=== PATIENT | male | born 1940 | race Caucasian/White ===

== ENCOUNTER 2017-03-14 22:56 | Observation (INO) | payer OTHER ==
[~2017-03-14] VITALS: Ht 165.1 cm; Wt 72.6 kg
[~2017-03-14 22:56] MED LIST: ALLOPURINOL300 MG PO; AMARYL1 MG PO; ASPIRIN81 M1 PO; AVAPRO150 MG PO; BACTRIM DS1 TAB PO; CALCITRIOL0.25 MCG PO; COUMADIN6 MG PO; FLOMAX0.4 MG PO; LIPITOR20 MG PO; LIPITOR40 MG PO; LOPRESSOR25 MG PO; METFORMIN HCL500 MG PO; MULTIVITAMIN1 TAB PO; NEURONTIN300 MG PO; NIACIN250 MG PO; OMEPRAZOLE20 M1 PO; VITAMIN D-11000 UNIT PO
--- NOTE | 2017-03-15 00:19 | DIAGNOSTIC IMAGING REPORT ---
PROCEDURE: XR CHEST 1 VIEW INDICATION: WEAKNESS TECHNIQUE: Portable AP view (ACR 3-0 hours). COMPARISON: Compared to chest x-ray on 01/20/2015. FINDINGS: Allowing for suboptimal inspiration, lungs are clear. Heart and mediastinum are normal. Thorax is normal. IMPRESSION: 1. Negative chest.
--- NOTE | 2017-03-15 00:34 | DIAGNOSTIC IMAGING REPORT ---
PROCEDURE: CT HEAD WITHOUT CONTRAST INDICATION: DIZZINESS TECHNIQUE: Noncontrast axial images with sagittal and coronal reformations. COMPARISON: Compared to a head CT on 01/20/2015. FINDINGS: There is a large old left occipital infarct. Findings superimposed on moderate old small vessel disease and atrophic changes. There is no evidence of acute process or hemorrhage. Sinuses and mastoids are normal. IMPRESSION: 1. 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 2. 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 3. No change. No evidence of acute process. 4. Findings discussed with Dr. Bunny Gupta (03/15/2017, 0020 hours) All CT scans at this facility use dose modulation, iterative reconstruction, and/or weight-based dosing when appropriate to reduce radiation dose to as low as reasonably achievable.
--- NOTE | 2017-03-15 04:36 | ED CLINICAL REPORT ---
Clinical Report - Physicians/Mid Levels [facility] [address] [place] [address] 03/14/2017 22:57 Patient: SUZANNE WILEY Time Seen: 23:14. Arrived- By ambulance. Historian- patient and EMS personnel. History limited by dementia. Physical Exam limited by dementia. HISTORY OF PRESENT ILLNESS Chief Complaint: DIZZINESS and WEAKNESS. Not described as a sense of rotation, movement, falling or confusion or feeling off balance. Described as feeling light-headed. When seen in the E.D., it was gone. This started just prior to arrival and is now gone. It was abrupt in onset and has been intermittent. No nausea, vomiting or ear pain. He has had right-sided tinnitus and left-sided tinnitus (chronically). He has had similar symptoms previously. REVIEW OF SYSTEMS No chills, fever, sweats, calf pain or chest pain. No cough, difficulty breathing, pedal edema, abdominal pain or black stools. No bloody stools, constipation, diarrhea, nausea or vomiting. No urinary problems. The patient has had intermittent palpitations (today). All systems otherwise negative, except as recorded above. PAST HISTORY ( PCP - Luci). Problems: Thoracic outlet syndrome. HLD. COPD - Chronic Obstructive Pulmonary Disease. BPH with obstruction. Vitamin D deficiency. Hyperparathyroidism. Dermatophytosis of the body. Atrial Fibrillation. Hyperkalemia. Chronic renal failure syndrome. Aortic Valve regurg. Onychogryphosis. PVD. Urge incontinence of urine. Gross hematuria. Hypersomnia. Contusion. Fall. Clavicle Fracture. Sepsis. Hypomagnesemia. Oral Anticoagulation Therapy. Balanitis. Renal Insufficiency. UTI - Urinary Tract Infection. Dementia. Immunizations. Gastroparesis. Onychomycosis. Gastric ulcer. CVA - Cerebrovascular Accident. Arthritis. Gout. Gangrene of foot. Cellulitis. Hypercholesterolemia. Hypertension. Diabetes Mellitus. Additional Surgeries: Angioplasty of blood vessel. Ankle surgery . Cholecystectomy. Partial amputation left index,middle,ring fingers. Tonsillectomy. Medications: Oxybutynin. Avapro 150 mg PO QD. Flomax 0.4 mg PO QHS. Omeprazole 20 mg PO QD. Vitamin D3 2000 IU 2 PO QD. Enteric Aspirin 81 mg QD. Metoprolol 25 mg PO QD. Lipitor 40 mg tab 1.5 tab PO QHS. Allopurinol 300 mg tab PO QD. Gabapentin 300 mg tab PO QHS. Tylenol Extra Strength Oral. Multivitamins Oral. Nystatin External. Zinc Oxide External. Docusate 100 mg QD. Maalox. Zinc Oxide. Finasteride 5 mg QD. Nystatin. Calmoseptine. Lexapro 10 mg 1/2 tab QD. Ketoconazole External. Allergies: NKDA. SOCIAL HISTORY Smoker- current status unknown. Occasional alcohol use. Is a local resident. He lives with spouse. FAMILY HISTORY Premature onset heart disease in first-degree relative (father and sibling). ADDITIONAL NOTES The nursing notes have been reviewed. PHYSICAL EXAM Vital Signs: 03/14/2017 23:01 BP: 189/55. HR: 68. RR: 18. O2 saturation: 98%. Temp: 98.2 F. Pain level now: 0/10. Have been reviewed. Appearance: Alert. Eyes: Pupils equal, round and reactive to light. No nystagmus. ENT: Pharynx normal. Neck: Normal inspection. Neck supple. No carotid bruit. CVS: Normal heart rate and rhythm. 2/6 systolic murmur. Respiratory: No respiratory distress. Breath sounds normal. Abdomen: Soft and nontender. No organomegaly. Back: Normal inspection. Skin: Skin warm and dry. Normal skin color. Normal skin turgor. Extremities: Extremities exhibit normal ROM. No calf tenderness. No lower extremity edema. Neuro: Alert. No motor deficit. No sensory deficit. LABS, X-RAYS, AND EKG EKG: Rate: 53. Non-specific ST segment / T wave abnormalities. EKG unchanged when compared with prior EKG. (22 January 2015). Chest X-ray: No acute disease. Laboratory Tests: UA-Culture if indicated: (SAY: 03/15/2017 03:45) ( MsgRcvd 03/15/2017 04:12) Final results Test Result Flag Units (Reference) URINE COLOR YELLOW URINE APPEARANCE CLEAR URINE GLUCOSE NEGATIVE (NEGATIVE) URINE BILIRUBIN NEGATIVE (NEGATIVE) URINE KETONE NEGATIVE (NEGATIVE) URINE SPECIFIC GRAVITY 1.025 (1.010-1.030) URINE PH 6.0 (5.0-8.0) URINE PROTEIN 2+ (NEGATIVE) URINE UROBILINOGEN 0.2 EU/dL (0.2-1.0) URINE NITRITE NEGATIVE (NEGATIVE) URINE BLOOD 1+ (NEGATIVE) URINE LEUK ESTERASE POSITIVE (NEGATIVE) URINE RBC 3-5 rbc/hpf (0-1) URINE WBC 25-50 wbc/hpf (0-1) URINE EPITHELIAL CELLS 0-1 EPI/hpf (0-5) URINE BACTERIA MODERATE (2+ TO 3+) (NONE SEEN) URINE COMMENT CULTURE INDICATED YEAST PRESENTURINE CULTURES ARE SET-UP BASED ON THE FOLLOWING CRITERIA:POSITIVE NITRITEPOSITIVE LEUKOCYTE ESTERASEGREATER THAN 10 WHITE BLOOD CELLSMODERATE (2+) OR GREATER BACTERIA PT with INR: (SAY: 03/15/2017 00:01) ( [facility] 03/15/2017 04:54) Final results Test Result Flag Units (Reference) INR 1.0 (0.8-1.2) Low Intensity Therapy: INR 1.5-2.0 PT range 18.5-23.1Mod.Intensity Therapy: INR 2.0-3.0 PT range 23.1-31.5High Intensity Therapy: INR 2.5-3.5 PT range 27.4-35.5High Intensity Therapy 2: INR 3.0-4.0 PT range 31.5-39.3 APTT 34 SECONDS (24-34) Lactate, Serum: (SAY: 03/15/2017 04:35) ( [facility] 03/15/2017 05:05) Final results Test Result Flag Units (Reference) LACTIC ACID 1.1 mmol/L (0.4-2.0) CPK: (SAY: 03/15/2017 03:55) ( [facility] 03/15/2017 04:18) Final results Test Result Flag Units (Reference) CPK 34 U/L (24-260) TROPONIN I 0.12 ng/mL (0.00-1.5) TROPONIN REFERENCE RANGE:<0.1 NEGATIVE0.1-1.5 INDETERMINANT>1.5 POSITIVE BNP: (SAY: 03/15/2017 00:01) ( [facility] 03/15/2017 00:42) Final results Test Result Flag Units (Reference) B-TYPE NATRIURETIC PEPTIDE 168 H pg/ml (5-100) CBC w Diff: (SAY: 03/14/2017 23:00) ( [facility] 03/14/2017 23:27) Final results Test Result Flag Units (Reference) WHITE BLOOD COUNT 4.9 K/uL (4.5-11.5) RED BLOOD COUNT 4.36 L M/uL (4.50-5.90) HEMOGLOBIN 12.5 L gm/dL (13.5-17.5) HEMATOCRIT 39.1 L % (41.0-53.0) MEAN CELL VOLUME 90 fL (80-100) MEAN CORPUSCULAR HGB 29 pg (26-34) MEAN CORPUSCULAR HGB CONC 32 g/dL (31-37) RED CELL DISTRIBUTION WIDTH 16.6 H % (11.6-14.8) PLATELET COUNT 81 L K/uL (150-400) LYMPH % 29.6 % (25-40) MONO % 5.0 % (3-14) GRANULOCYTE % 65.4 CMP: (SAY: 03/14/2017 23:00) ( [facility] 03/14/2017 23:42) Final results Test Result Flag Units (Reference) GLUCOSE 162 H mg/dL (70-110) BUN 25 H mg/dL (7-18) CREATININE 1.0 mg/dL (0.6-1.3) Estimated GFR >60 mL/min Estimated GFR- >60 mL/min Note: Persistent reduction over 3 months in eGFR<60 mL/min/1.73 m2 defines CKD. Patients with eGFR values>=60 mL/min/1.73 m2 may also have CKD if evidence ofpersistent proteinuria. Additional information may be foundat www.kidney.org. SODIUM 146 H mmol/L (136-145) POTASSIUM 4.4 mmol/L (3.5-5.1) CHLORIDE 112 H mmol/L (98-107) CARBON DIOXIDE 29 mmol/L (21-32) CALCIUM 7.7 L mg/dL (8.5-10.1) TOTAL PROTEIN 5.8 L g/dL (6.4-8.2) ALBUMIN 2.3 L g/dL (3.3-5.0) BILIRUBIN, TOTAL 0.4 mg/dL (0.0-1.0) ALKALINE PHOSPHATASE 157 H U/L (46-116) AST (SGOT) 30 U/L (15-37) ALT (SGPT) 46 U/L (12-78) LIPASE 83 U/L (73-393) AMYLASE 52 U/L (25-115) CPK 26 U/L (24-260) TROPONIN I 0.15 ng/mL (0.00-1.5) TROPONIN REFERENCE RANGE:<0.1 NEGATIVE0.1-1.5 INDETERMINANT>1.5 POSITIVE . PROGRESS AND PROCEDURES Course of Care: Patient is stable. Discussed case with hospitalist, (Brandi - he saw the patient in the ER). Reviewed test results and need for additional work-up. Agreed upon treatment plan, need for patient follow-up and decision to admit. Patient/family counseled. Old medical records reviewed. CLINICAL IMPRESSION Dizziness. Changed mental status. Urinary tract infection. Abnormal tests: (indeterminate troponin). INSTRUCTIONS Prescription Medications: Penicillin V 500mg: take 1 tab orally every 6 hours for 10 days. Dispense forty (40). No refill (Electronically signed by Bunny Gupta MD 03/15/2017 9:46)
--- NOTE | 2017-03-15 04:36 | ED CLINICAL REPORT ---
Clinical Report - Physicians/Mid Levels [facility] [address] [place] [address] 03/14/2017 22:57 Patient: SUZANNE WILEY Time Seen: 23:14. Arrived- By ambulance. Historian- patient and EMS personnel. History limited by dementia. Physical Exam limited by dementia. HISTORY OF PRESENT ILLNESS Chief Complaint: DIZZINESS and WEAKNESS. Not described as a sense of rotation, movement, falling or confusion or feeling off balance. Described as feeling light-headed. When seen in the E.D., it was gone. This started just prior to arrival and is now gone. It was abrupt in onset and has been intermittent. No nausea, vomiting or ear pain. He has had right-sided tinnitus and left-sided tinnitus (chronically). He has had similar symptoms previously. REVIEW OF SYSTEMS No chills, fever, sweats, calf pain or chest pain. No cough, difficulty breathing, pedal edema, abdominal pain or black stools. No bloody stools, constipation, diarrhea, nausea or vomiting. No urinary problems. The patient has had intermittent palpitations (today). All systems otherwise negative, except as recorded above. PAST HISTORY ( PCP - Luci). Problems: Thoracic outlet syndrome. HLD. COPD - Chronic Obstructive Pulmonary Disease. BPH with obstruction. Vitamin D deficiency. Hyperparathyroidism. Dermatophytosis of the body. Atrial Fibrillation. Hyperkalemia. Chronic renal failure syndrome. Aortic Valve regurg. Onychogryphosis. PVD. Urge incontinence of urine. Gross hematuria. Hypersomnia. Contusion. Fall. Clavicle Fracture. Sepsis. Hypomagnesemia. Oral Anticoagulation Therapy. Balanitis. Renal Insufficiency. UTI - Urinary Tract Infection. Dementia. Immunizations. Gastroparesis. Onychomycosis. Gastric ulcer. CVA - Cerebrovascular Accident. Arthritis. Gout. Gangrene of foot. Cellulitis. Hypercholesterolemia. Hypertension. Diabetes Mellitus. Additional Surgeries: Angioplasty of blood vessel. Ankle surgery . Cholecystectomy. Partial amputation left index,middle,ring fingers. Tonsillectomy. Medications: Oxybutynin. Avapro 150 mg PO QD. Flomax 0.4 mg PO QHS. Omeprazole 20 mg PO QD. Vitamin D3 2000 IU 2 PO QD. Enteric Aspirin 81 mg QD. Metoprolol 25 mg PO QD. Lipitor 40 mg tab 1.5 tab PO QHS. Allopurinol 300 mg tab PO QD. Gabapentin 300 mg tab PO QHS. Tylenol Extra Strength Oral. Multivitamins Oral. Nystatin External. Zinc Oxide External. Docusate 100 mg QD. Maalox. Zinc Oxide. Finasteride 5 mg QD. Nystatin. Calmoseptine. Lexapro 10 mg 1/2 tab QD. Ketoconazole External. Allergies: NKDA. SOCIAL HISTORY Smoker- current status unknown. Occasional alcohol use. Is a local resident. He lives with spouse. FAMILY HISTORY Premature onset heart disease in first-degree relative (father and sibling). ADDITIONAL NOTES The nursing notes have been reviewed. PHYSICAL EXAM Vital Signs: 03/14/2017 23:01 BP: 189/55. HR: 68. RR: 18. O2 saturation: 98%. Temp: 98.2 F. Pain level now: 0/10. Have been reviewed. Appearance: Alert. Eyes: Pupils equal, round and reactive to light. No nystagmus. ENT: Pharynx normal. Neck: Normal inspection. Neck supple. No carotid bruit. CVS: Normal heart rate and rhythm. 2/6 systolic murmur. Respiratory: No respiratory distress. Breath sounds normal. Abdomen: Soft and nontender. No organomegaly. Back: Normal inspection. Skin: Skin warm and dry. Normal skin color. Normal skin turgor. Extremities: Extremities exhibit normal ROM. No calf tenderness. No lower extremity edema. Neuro: Alert. No motor deficit. No sensory deficit. LABS, X-RAYS, AND EKG EKG: Rate: 53. Non-specific ST segment / T wave abnormalities. EKG unchanged when compared with prior EKG. (22 January 2015). Chest X-ray: No acute disease. Laboratory Tests: UA-Culture if indicated: (SAY: 03/15/2017 03:45) ( MsgRcvd 03/15/2017 04:12) Final results Test Result Flag Units (Reference) URINE COLOR YELLOW URINE APPEARANCE CLEAR URINE GLUCOSE NEGATIVE (NEGATIVE) URINE BILIRUBIN NEGATIVE (NEGATIVE) URINE KETONE NEGATIVE (NEGATIVE) URINE SPECIFIC GRAVITY 1.025 (1.010-1.030) URINE PH 6.0 (5.0-8.0) URINE PROTEIN 2+ (NEGATIVE) URINE UROBILINOGEN 0.2 EU/dL (0.2-1.0) URINE NITRITE NEGATIVE (NEGATIVE) URINE BLOOD 1+ (NEGATIVE) URINE LEUK ESTERASE POSITIVE (NEGATIVE) URINE RBC 3-5 rbc/hpf (0-1) URINE WBC 25-50 wbc/hpf (0-1) URINE EPITHELIAL CELLS 0-1 EPI/hpf (0-5) URINE BACTERIA MODERATE (2+ TO 3+) (NONE SEEN) URINE COMMENT CULTURE INDICATED YEAST PRESENTURINE CULTURES ARE SET-UP BASED ON THE FOLLOWING CRITERIA:POSITIVE NITRITEPOSITIVE LEUKOCYTE ESTERASEGREATER THAN 10 WHITE BLOOD CELLSMODERATE (2+) OR GREATER BACTERIA PT with INR: (SAY: 03/15/2017 00:01) ( [facility] 03/15/2017 04:54) Final results Test Result Flag Units (Reference) INR 1.0 (0.8-1.2) Low Intensity Therapy: INR 1.5-2.0 PT range 18.5-23.1Mod.Intensity Therapy: INR 2.0-3.0 PT range 23.1-31.5High Intensity Therapy: INR 2.5-3.5 PT range 27.4-35.5High Intensity Therapy 2: INR 3.0-4.0 PT range 31.5-39.3 APTT 34 SECONDS (24-34) Lactate, Serum: (SAY: 03/15/2017 04:35) ( [facility] 03/15/2017 05:05) Final results Test Result Flag Units (Reference) LACTIC ACID 1.1 mmol/L (0.4-2.0) CPK: (SAY: 03/15/2017 03:55) ( [facility] 03/15/2017 04:18) Final results Test Result Flag Units (Reference) CPK 34 U/L (24-260) TROPONIN I 0.12 ng/mL (0.00-1.5) TROPONIN REFERENCE RANGE:<0.1 NEGATIVE0.1-1.5 INDETERMINANT>1.5 POSITIVE BNP: (SAY: 03/15/2017 00:01) ( [facility] 03/15/2017 00:42) Final results Test Result Flag Units (Reference) B-TYPE NATRIURETIC PEPTIDE 168 H pg/ml (5-100) CBC w Diff: (SAY: 03/14/2017 23:00) ( [facility] 03/14/2017 23:27) Final results Test Result Flag Units (Reference) WHITE BLOOD COUNT 4.9 K/uL (4.5-11.5) RED BLOOD COUNT 4.36 L M/uL (4.50-5.90) HEMOGLOBIN 12.5 L gm/dL (13.5-17.5) HEMATOCRIT 39.1 L % (41.0-53.0) MEAN CELL VOLUME 90 fL (80-100) MEAN CORPUSCULAR HGB 29 pg (26-34) MEAN CORPUSCULAR HGB CONC 32 g/dL (31-37) RED CELL DISTRIBUTION WIDTH 16.6 H % (11.6-14.8) PLATELET COUNT 81 L K/uL (150-400) LYMPH % 29.6 % (25-40) MONO % 5.0 % (3-14) GRANULOCYTE % 65.4 CMP: (SAY: 03/14/2017 23:00) ( [facility] 03/14/2017 23:42) Final results Test Result Flag Units (Reference) GLUCOSE 162 H mg/dL (70-110) BUN 25 H mg/dL (7-18) CREATININE 1.0 mg/dL (0.6-1.3) Estimated GFR >60 mL/min Estimated GFR- >60 mL/min Note: Persistent reduction over 3 months in eGFR<60 mL/min/1.73 m2 defines CKD. Patients with eGFR values>=60 mL/min/1.73 m2 may also have CKD if evidence ofpersistent proteinuria. Additional information may be foundat www.kidney.org. SODIUM 146 H mmol/L (136-145) POTASSIUM 4.4 mmol/L (3.5-5.1) CHLORIDE 112 H mmol/L (98-107) CARBON DIOXIDE 29 mmol/L (21-32) CALCIUM 7.7 L mg/dL (8.5-10.1) TOTAL PROTEIN 5.8 L g/dL (6.4-8.2) ALBUMIN 2.3 L g/dL (3.3-5.0) BILIRUBIN, TOTAL 0.4 mg/dL (0.0-1.0) ALKALINE PHOSPHATASE 157 H U/L (46-116) AST (SGOT) 30 U/L (15-37) ALT (SGPT) 46 U/L (12-78) LIPASE 83 U/L (73-393) AMYLASE 52 U/L (25-115) CPK 26 U/L (24-260) TROPONIN I 0.15 ng/mL (0.00-1.5) TROPONIN REFERENCE RANGE:<0.1 NEGATIVE0.1-1.5 INDETERMINANT>1.5 POSITIVE . PROGRESS AND PROCEDURES Course of Care: Patient is stable. Discussed case with hospitalist, (Brandi - he saw the patient in the ER). Reviewed test results and need for additional work-up. Agreed upon treatment plan, need for patient follow-up and decision to admit. Patient/family counseled. Old medical records reviewed. CLINICAL IMPRESSION Dizziness. Changed mental status. Urinary tract infection. Abnormal tests: (indeterminate troponin). INSTRUCTIONS Prescription Medications: Penicillin V 500mg: take 1 tab orally every 6 hours for 10 days. Dispense forty (40). No refill (Electronically signed by Bunny Gupta MD 03/15/2017 9:46)
--- NOTE | 2017-03-15 04:37 | ED ORDER SUMMARY ---
..... Patient: SUZANNE WILEY OrderSheet [facility] VisitID: [id number] [place] [address] 76y, M Registration Date/Time: 03/14/2017 ORDER SHEET Weight: 73.4 kg (stated) Allergies: NKDA GENERAL ORDERS: Chest 1V Urgent (23:03/14/2017 Cheng ORONA) (Ack 23:20 LMuller) (23:31 Lindsay) Ship Washer (Continuous) (:03/14/2017 Cheng ORONA) (Ack 23:32 MCook R.N.) (0:01 MCook R.N.) CT Head wo Cont Urgent (:03/14/2017 Cheng ORONA) (Ack 23:20 LMuller) (23:31 Lindsay) CBC w Diff Urgent (:03/14/2017 Cheng ORONA) (Ack 23:20 LMuller) (23:26 JQuivey R.N.) CMP Urgent (:03/14/2017 Cheng ORONA) (Ack 23:20 LMuller) (23:26 JQuivey R.N.) UA-Culture if indicated Urgent (:03/14/2017 Cheng ORONA) (Ack 23:20 LMuller) (4:30 JQuivey R.N.) Amylase Urgent (:03/14/2017 Cheng ORONA) (Ack 23:20 LMuller) (23:26 JQuivey R.N.) Lipase Urgent (:03/14/2017 Cheng ORONA) (Ack 23:20 LMuller) (23:26 JQuivey R.N.) CPK Urgent (23:03/14/2017 Cheng ORONA) (Ack 23:20 LMuller) (23:26 JQuivey R.N.) Troponin-I Urgent (:03/14/2017 Cheng ORONA) (Ack 23:20 LMuller) (23:26 JQuivey R.N.) Pulse oximeter (:03/14/2017 Cheng ORONA) (23:28 MCook R.N.) EKG - ER Stat (23:15 03/14/2017 Cheng ORONA) (Ack 23:20 LMuller) (23:28 LMuller) Vitals - Orthostatic (23:03/14/2017 Cheng ORONA) (Ack 23:32 MCook R.N.) (0:01 MCook R.N.) BNP Urgent (00:23 03/15/2017 Cheng ORONA) (0:28 MCook R.N.) (0:28 LMuller) Troponin-I (2nd set) Urgent (03:42 03/15/2017 Cheng ORONA) (Ack 4:00 RKaruga) (4:48 JQuivey R.N.) CPK (2nd set) Urgent (03:42 03/15/2017 Cheng ORONA) (Ack 4:00 RKbeltranuga) (4:48 JQuivey R.N.) Blood Culture (No) (N/A) Urgent (04:17 03/15/2017 Cheng ORONA) (Ack 4:28 RKbeltranuga) (4:48 JQuivey R.N.) Lactate, Serum Urgent (04:18 03/15/2017 Cheng ORONA) (Ack 4:28 RKbeltranuga) (4:48 JQuivey R.N.) PT with INR Urgent (04:29 03/15/2017 Cheng ORONA) (Ack 4:32 Mary) (4:48 JQuivey R.N.) PTT Urgent (04:03/15/2017 Cheng ORONA) (Ack 4:32 Mary) (4:48 JQuivey R.N.) MEDICATION ORDERS: Aspirin PO 325 mg (NOW) (00:21 03/15/2017 Cheng ORONA) (0:54 MCook R.N.) Clonidine PO 0.2 mg (NOW) (00:57 03/15/2017 Cheng ORONA) (1:01 MCook R.N.) IV FLUIDS: IV Saline Lock (23:15 03/14/2017 Cheng ORONA) (23:26 JQuivey R.N.) Ativan IV 0.5 mg (HIGH ALERT MEDICATION, NOW) (02:58 03/15/2017 Cheng ORONA) (3:07 Lorenza R.N.) Levaquin IV 750 mg/150 mL (NOW) (04:20 03/15/2017 Cheng ORONA) (Ack 4:31 JQuivey R.N.) (4:49 JQuivey R.N.) ORDER SHEET NOTES: [Electronically signed by Sotero Atkinson R.N. (06:34 03/15/2017)] [Electronically signed by Bunny Gupta MD (09:46 03/15/2017)] [Electronically locked/signed by Sotero Atkinson R.N. (06:34 03/15/2017)]
--- NOTE | 2017-03-15 04:37 | ED ORDER SUMMARY ---
..... Patient: SUZANNE WILEY OrderSheet [facility] VisitID: [id number] [address] [place] [address] 76y, M Registration Date/Time: 03/14/2017 ORDER SHEET Weight: 73.4 kg (stated) Allergies: NKDA GENERAL ORDERS: Chest 1V Urgent (23:03/14/2017 Cheng ORONA) (Ack 23:20 LMuller) (23:31 Lindsay) Gravity Prospecting Observer Helper (Continuous) (:03/14/2017 Cheng ORONA) (Ack 23:32 MCook R.N.) (0:01 MCook R.N.) CT Head wo Cont Urgent (:03/14/2017 Cheng ORONA) (Ack 23:20 LMuller) (23:31 Lindsay) CBC w Diff Urgent (:03/14/2017 Cheng ORONA) (Ack 23:20 LMuller) (23:26 JQuivey R.N.) CMP Urgent (:03/14/2017 Cheng ORONA) (Ack 23:20 LMuller) (23:26 JQuivey R.N.) UA-Culture if indicated Urgent (:03/14/2017 Cheng ORONA) (Ack 23:20 LMuller) (4:30 JQuivey R.N.) Amylase Urgent (:03/14/2017 Cheng ORONA) (Ack 23:20 LMuller) (23:26 JQuivey R.N.) Lipase Urgent (:03/14/2017 Cheng ORONA) (Ack 23:20 LMuller) (23:26 JQuivey R.N.) CPK Urgent (23:03/14/2017 Cheng ORONA) (Ack 23:20 LMuller) (23:26 JQuivey R.N.) Troponin-I Urgent (:03/14/2017 Cheng ORONA) (Ack 23:20 LMuller) (23:26 JQuivey R.N.) Pulse oximeter (:03/14/2017 Cheng ORONA) (23:28 MCook R.N.) EKG - ER Stat (23:15 03/14/2017 Cheng ORONA) (Ack 23:20 LMuller) (23:28 LMuller) Vitals - Orthostatic (23:03/14/2017 Cheng ORONA) (Ack 23:32 MCook R.N.) (0:01 MCook R.N.) BNP Urgent (00:23 03/15/2017 Cheng ORONA) (0:28 MCook R.N.) (0:28 LMuller) Troponin-I (2nd set) Urgent (03:42 03/15/2017 Cheng ORONA) (Ack 4:00 RKaruga) (4:48 JQuivey R.N.) CPK (2nd set) Urgent (03:42 03/15/2017 Cheng ORONA) (Ack 4:00 RKbeltranuga) (4:48 JQuivey R.N.) Blood Culture (No) (N/A) Urgent (04:17 03/15/2017 Cheng ORONA) (Ack 4:28 RKbeltranuga) (4:48 JQuivey R.N.) Lactate, Serum Urgent (04:18 03/15/2017 Cheng ORONA) (Ack 4:28 RKbeltranuga) (4:48 JQuivey R.N.) PT with INR Urgent (04:29 03/15/2017 Cheng ORONA) (Ack 4:32 Mary) (4:48 JQuivey R.N.) PTT Urgent (04:03/15/2017 Cheng ORONA) (Ack 4:32 Mary) (4:48 JQuivey R.N.) MEDICATION ORDERS: Aspirin PO 325 mg (NOW) (00:21 03/15/2017 Cheng ORONA) (0:54 MCook R.N.) Clonidine PO 0.2 mg (NOW) (00:57 03/15/2017 Cheng ORONA) (1:01 MCook R.N.) IV FLUIDS: IV Saline Lock (23:15 03/14/2017 Cheng ORONA) (23:26 JQuivey R.N.) Ativan IV 0.5 mg (HIGH ALERT MEDICATION, NOW) (02:58 03/15/2017 Cheng ORONA) (3:07 Lorenza R.N.) Levaquin IV 750 mg/150 mL (NOW) (04:20 03/15/2017 Cheng ORONA) (Ack 4:31 JQuivey R.N.) (4:49 JQuivey R.N.) ORDER SHEET NOTES: [Electronically signed by Sotero Atkinson R.N. (06:34 03/15/2017)] [Electronically signed by Bunny Gupta MD (09:46 03/15/2017)] [Electronically locked/signed by Sotero Atkinson R.N. (06:34 03/15/2017)]
--- NOTE | 2017-03-15 04:37 | ED NURSING NOTES ---
Clinical Report - Nurses [facility] [address] [place] [address] 03/14/2017 22:57 Patient: SUZANNE WILEY TRIAGE Triage time 23:Mar 14 2017. Acuity: LEVEL 3. Chief Complaint: ("I feel like I'm going to "). Alert. No acute distress. PAZ COMA SCORE: Purdys Coma Scale: 14- eyes open spontaneously (4); best verbal response- disoriented (4); best motor response- obeys commands (6). --23:12 Nikolas Gao R.N. 23:01 03/14/17. BP: 189/55. HR: 68. RR: 18. O2 saturation: 98% on room air. Temp: 98.2 F. Pain level now: 0/10. --23:12 Nikolas Gao R.N. Weight: 73.4 kg stated. Height/Length: 65 inches Per Patient. BMI: 27. --23:01 Nikolas Gao R.N. Medications Ketoconazole External. --23:35 Nikolas Gao R.N. Lexapro 10 mg 1/2 tab QD. --23:35 Nikolas Gao R.N. Calmoseptine. --23:35 Nikolas Gao R.N. Nystatin. --23:35 Nikolas Gao R.N. Finasteride 5 mg QD. --23:36 Nikolas Gao R.N. Zinc Oxide. --23:36 Nikolas Gao R.N. Maalox. --23:36 Nikolas Gao R.N. Docusate 100 mg QD. --23:36 Nikolas Gao R.N. Multivitamins Oral. Nystatin External. Zinc Oxide External. --23:36 Nikolas Gao R.N. Tylenol Extra Strength Oral. --23:37 Nikolas Gao R.N. Gabapentin 300 mg tab PO QHS. --23:37 Cook, Nikolas, R.N. Allopurinol 300 mg tab PO QD. --23:37 Nikolas Gao R.N. Lipitor 40 mg tab 1.5 tab PO QHS. --23:37 Nikolas Gao R.N. Metoprolol 25 mg PO QD. --23:38 Nikolas Gao R.N. Enteric Aspirin 81 mg QD. --23:38 Nikolas Gao R.N. Vitamin D3 2000 IU 2 PO QD. --23:38 Nikolas Gao R.N. Omeprazole 20 mg PO QD. --23:38 Nikolas Gao R.N. Flomax 0.4 mg PO QHS. --23:38 Nikolas Gao R.N. Avapro 150 mg PO QD. --23:39 Nikolas Gao R.N. Oxybutynin. --23:39 Nikolas Gao R.N. Allergies NKDA. --23:02 Nikolas Gao R.N. History Arrived by EMS. Historian: EMS. This started just prior to arrival and today. Treatment COLLECTIONS ATTORNEY: None. PAST MEDICAL HX: Immunizations: status is unknown. SOCIAL HX: Former smoker (quit 20 years ago). Occasional alcohol use. No drug use. SELF HARM ASSESSMENT: A self harm assessment was performed. The patient answered "no" to the question "Have you recently felt down, depressed, or hopeless?". FALL RISK ASSESSMENT: Fall risk assessment completed. No fall risk identified. NUTRITIONAL RISK ASSESSMENT: The nutritional risk assessment revealed no deficiencies. FUNCTIONAL ASSESSMENT: Functional assessment performed: requires assistance with the activities of daily living; uses cane; cognitive impairment present- this cognitive impairment is an ongoing problem. LEARNING NEEDS ASSESSMENT: A learning needs assessment was performed. Factors affecting the patient's ability to learn include cognitive limitations. --23:12 Nikolas Gao R.N. ( Pt presents tonight saying "I don't know what's wrong, I just feel like I'm going to ." He denies any pain, SOB, CP, recent falls. He cannot describe what is wrong.). --23:34 Nikolas Gao R.N. PROBLEMS: Contusion. Fall. Clavicle Fracture. Sepsis. Hypomagnesemia. Oral Anticoagulation Therapy. Balanitis. Renal Insufficiency. UTI - Urinary Tract Infection. Tetanus Status. Dementia. Immunizations. Gastroparesis. Onychomycosis. Gastric ulcer. CVA - Cerebrovascular Accident. Gout. Arthritis. Gangrene of foot. Cellulitis. Hypercholesterolemia. Diabetes Mellitus. Hypertension. --23:03 Nikolas Gao R.N. Pneumonia [Resolved]. --23:03 Nikolas Gao R.N. Thoracic outlet syndrome. HLD. COPD - Chronic Obstructive Pulmonary Disease. BPH with obstruction. Vitamin D deficiency. Hyperparathyroidism. Neuropathy. Dermatophytosis of the body. Atrial Fibrillation. Hyperkalemia. Chronic renal failure syndrome. Aortic Valve regurg. Onychogryphosis. PVD. Urge incontinence of urine. Gross hematuria. Hypersomnia. --23:43 Nikolas Gao R.N. ADDITIONAL SURGERIES: Angioplasty of blood vessel. Ankle surgery . Cholecystectomy. Partial amputation left index,middle,ring fingers. Tonsillectomy. --23:04 Nikolas Gao R.N. Interventions ID band on patient. To treatment room. --23:12 Nikolas Gao R.N. PHYSICAL ASSESSMENT To room via stretcher. GENERAL / NEURO / PSYCH: Appears anxious. The patient is disoriented to time and situation. HEENT: Pupils equal, round and reactive to light. RESPIRATORY: Respirations not labored. Breath sounds within normal limits. CVS: Capillary refill less than 2 seconds. Pulses within normal limits. GI / : Abdomen soft and nontender and normal bowel sounds. SKIN: Skin is pale. Skin is warm and dry. --23:13 Nikolas Gao R.N. NURSING PROGRESS NOTES The plan of care for this patient has been created. Monitoring of patient in place. Patient gowned. Head of bed elevated. Reassurance given. Two patient identifiers checked. Call light placed in reach. Side rails up x 2. Bed placed in lowest position. Patient ready for evaluation- ED physician notified. --23:13 Nikolas Gao R.N. 23:16 03/14/2017 Site #1 started via IV in the left antecubital space with an 20g angiocath, with aseptic technique and good blood return; one attempt. Blood drawn: rainbow set. Labeled in the presence of the patient and sent to the lab. Saline lock flushed with 10 mL saline. --23:26 Sotero Atkinson R.N. Patient transported to CT by stretcher with tech. (23:27 Jonathan 12 2016). ( Pt's is at bedside.). --23:32 Nikolas Gao R.N. EKG time: (23:26). EKG was performed by a tech and shown to the ED physician. ( Old EKG pulled from medical records and given to ED DR). --23:33 Kaya Andujar Patient returned from CT by stretcher with tech. --23:43 Nikolas Gao R.N. 23:47 03/14/17. BP: 185/70 taken while lying. HR: 57. O2 saturation: 100%. --23:48 Nikolas Gao R.N. 23:51 03/14/17. BP: 186/68 taken while sitting. HR: 55. --23:51 Nikolas Gao R.N. 23:55 03/14/17. BP: 172/61 taken while standing. HR: 60. --23:55 Nikolas Gao R.N. ( Pt keeps asking his "how long am I going to be here?" He is cooperative, pleasantly confused. Attempted to obtain UA, PT was incontinent of urine, changed bedding but Pt was unable to provide a sample at this time, orthostatic VS completed, at bedside.). --00:01 Nikolas Gao R.N. ( Pt unable to provide urine sample, he asked me to leave the urinal with him so he could keep trying, spouse at bedside, monitoring VS.). --00:51 Nikolas Gao R.N. 00:51 03/15/17. BP: 181/65. HR: 60. RR: 16. O2 saturation: 98% on room air. Pain level now: 0/10. --00:52 Nikolas Gao R.N. 00:54 03/15/2017 Aspirin PO Tablets 325 mg given. Allergies verified and confirmed 5 rights. --00:54 Nikolas Gao R.N. 01:00 03/15/17. BP: 192/93. HR: 60. --01:01 Nikolas Gao R.N. 01:01 03/15/2017 Clonidine PO Tablets 0.2 mg given. Allergies verified and confirmed 5 rights. --01:01 Nikolas Gao R.N. 01:24. Care transferred and report received. --01:24 Sotero Atkinson R.N. 01:40 03/15/2017 Aspirin PO Response: no adverse reaction. --01:40 Nikolas Gao R.N. 02:32 Patient attempting to use urinal at bedside. --02:45 Sotero Atkinson R.N. 02:40 Patient unable to void - pt back in bed, "states- yelling I want to go home". --02:46 Sotero Atkinson R.N. Cardiac rhythm: sinus bradycardia. The patient is resting quietly. RESPIRATORY: No respiratory distress. SKIN: Skin is warm and dry. Skin color within normal limits. --02:50 Sotero Atkinson R.N. 02:46 03/15/17. BP: 126/71. HR: 58. RR: 16. O2 saturation: 100% on room air. Pain level now: 0/10. --02:50 Sotero Atkinson R.N. 03:03 03/15/2017 Ativan (LORazepam) IVP 0.5 mg given over 2 minute(s) via site #1. Allergies verified, confirmed 5 rights and sedative warning given to the patient and patient's family. IV patency established. IV site checked: no pain, redness, or swelling. IV flushed thoroughly pre- and post-medication administration. --03:07 Sotero Atkinson R.N. 03:05 Patient given 12 oz cup of ice water, encouraged to drink, reminded of need for urine sample. --03:09 Sotero Atkinson R.N. 03:24 Patient attempted to use urinal at bedside - unable to void. --03:24 Sotero Atkinson R.N. 03:42. 14 fr in/out catheterization. Reason for indwelling catheter: patient's decreased level of consciousness. During procedure hand hygiene observed and sterile equipment and aseptic technique used. Return of 200 mL yellow-colored cloudy urine. He tolerated procedure well. --03:49 Sotero Atkinson R.N. 03:50 management tech with pt for blood draw. --03:52 Sotero Atkinson R.N. 04:22 03/15/17. BP: 146/53. HR: 52. RR: 17. O2 saturation: 100% on room air. --04:48 Sotero Atkinson R.N. 04:22. Cardiac rhythm: sinus bradycardia. The patient is sleeping. RESPIRATORY: No respiratory distress. SKIN: Skin is warm and dry. Skin color within normal limits. --04:48 Sotero Atkinson R.N. 04:48 03/15/2017 Started 750 mg of Levaquin (Levofloxacin) IVPB in bag #1 150 mL; at 100 mL/hr over 1.5 hour(s) via site #1 via IV pump. Allergies verified and confirmed 5 rights. IV patency established. IV site checked: no pain, redness, or swelling. IV flushed thoroughly pre- and post-medication administration. --04:49 Sotero Atkinson R.N. 05:30 03/15/17. BP: 154/46. HR: 49. RR: 16. O2 saturation: 98% on room air. Pain level now: 0/10. --05:31 Sotero Atkinson R.N. The patient is calm and resting quietly. RESPIRATORY: No respiratory distress. SKIN: Skin is warm and dry. Skin color within normal limits. --05:31 Sotero Atkinson R.N. 05:23 Dr. Paz with patient for evaluation. --05:32 Sotero Atkinson R.N. 06:16 03/15/2017 Levaquin IVPB Discontinued: completed. Total amount infused: 150 mL. IV patency established. IV site checked: no pain, redness, or swelling. IV flushed thoroughly. --06:16 Herminia Narayanan R.N. DISPOSITION / DISCHARGE Condition at departure: stable. Disposition: observation in Acute Care. Transported via stretcher by [facility] Patient's personal items include: glasses, Other belongings; items were placed in belongings bag and transported with the patient. He did not have contacts, dentures or a hearing aid. FALL RISK ASSESSMENT: Fall risk assessment completed. No fall risk identified. --05:56 Sotero Atkinson R.N. 05:55 03/15/17. BP: 151/59. HR: 47. RR: 16. O2 saturation: 99%. Pain level now: 0/10. --05:56 Sotero Atkinson R.N. 06:22. Report was given via a phone call. Report included patient's care, treatment, medications, reviewed medication reconcilliation, and condition (including any recent changes or anticipated changes). All questions were answered. Report was acknowledged. (Lauren ARELLANOcomplex care nurse). --06:22 Sotero Atkinson R.N. Departure time: 06:33. --06:33 Sotero Atkinson R.N. Locked/Released at 03/15/2017 6:34 by Sotero Atkinson R.N.
--- NOTE | 2017-03-15 05:19 | Progress Note ---
Subjective General Admission History and Physical Examination Patient Name: Cosme Zavala Admission Date: March 15, 2017 Primary Care Provider: Maksim Verma M.D. Attending Physician: Maksim Verma M.D. Admitting Physician: Guido Paz M.D. Code Status: FULL CODE Room: 206 Status: Observation, ACU SUBJECTIVE Historian: Patient and Reliability: Fair Chief Complaint: Dizziness History of Present Illness: The patient is a 76-year-old white male with a significant past medical history of diabetes mellitus type 2, peripheral vascular disease, dementia, cerebrovascular disease, degenerative joint disease, hyperlipidemia, hypertension, chronic kidney disease, recurrent UTI, gout, who presented to [facility] emergency department on the day of admission secondary to complaints of altered mental status/dizziness. [facility] ER evaluation was consistent with UTI, prerenal azotemia, progressive dementia with altered mental status. Secondary to the above, the patient was admitted by Guido Paz M.D. for further evaluation and treatment. The history of present was began several months prior to admission when the patient has experienced increasing problems with memory loss, altered thought processes, generalized weakness. On the day of admission he apparently complained of dizziness. Secondary to a new complaint in conjunction with previously mentioned complaints of patient was transported to [facility] emergency department for further evaluation and treatment. [facility] ER evaluation showed urinary symptoms consistent with UTI, prerenal azotemia, dementia, and mild confusion. Secondary to the above, the patient was admitted by Guido Paz M.D. for further evaluation and treatment PAST MEDICAL HISTORY Illnesses: 1. Dementia 2. Peripheral arterial disease 3. Diabetes mellitus type 2 4. Degenerative joint disease 5. Hyperlipidemia 6. Hypertension 7. Gout 8. Peptic ulcer disease 9. Recurrent UTI 10. Bladder outlet obstruction 11. Chronic kidney disease 12. Diabetic neuropathy Allergies: 1. No known drug allergies Medications: 1. Ketoconazole cream 2% topically twice a day 2. Lexapro 10 mg one half by mouth daily 3. Finasteride 5 mg by mouth daily 4. Tylenol Extra Strength 500 mg 2 by mouth every 4 hours when necessary pain 5. Gabapentin 300 mg by mouth daily at bedtime 6. Allopurinol 300 mg by mouth daily 7. Lipitor 40 mg 1.5 by mouth daily 8. Toprol-XL 25 mg by mouth daily 9. Aspirin 81 mg by mouth daily 10. Vitamin D 2000 units 2 by mouth daily 11. Prilosec 20 mg by mouth daily 12. Flomax 0.4 mg by mouth daily 13. Avapro 150 mg by mouth daily 14. Oxybutynin dosage unknown Surgery: 1. Ankle surgery 2. Cholecystectomy 3. Partial amputation of left index middle and ring finger 4. Tonsillectomy 5. Angioplasty Injuries: 1. Fractured ankle Hospitalizations: 1. For above medical and surgical problems FAMILY HISTORY Parents: 1. Father, , 67, cancer type unknown 2. Mother, , 67, gastric problems Siblings: 1. The patient has 5 siblings all of which are . History of heart disease, epilepsy Children: 1. The patient has 4 children all of which are in good health Other significant family history: None SOCIAL HISTORY 1. Marital Status: 2. Rastafarian: LDS 3. Education: Ninth grade 4. Employment History: Retired 5. Occupational health exposures: None HABITS 1. Tobacco: 5 pack years, nonsmoker 2.. Drugs: None 3. Alcohol: None 4. Caffeine: None HEALTH SUPERVISION Item/Test 1. Vision screen: 2015 2. Cholesterol Profile: Unknown 3. PSA: Unknown 4. SHANNON: Unknown 5. FOBT: Unknown 6. Blood Glucose: 2016 7. Colonoscopy: Unknown 8. History and physical exam: Unknown 9. Audiogram: Unknown 10. Mammogram: Not applicable 11. Pap/pelvic exam: Not applicable IMMUNIZATIONS: 1. Pneumococcal: Unknown 2. Influenza: Unknown 3. Tetanus: Unknown ADVANCED DIRECTIVES: 1. CODE STATUS: FULL CODE REVIEW OF SYSTEMS Remarkable for those things stated in the history of present illness and past medical history. Seventeen point review of system completed with the following notable findings: General: Fatigue, weakness, weight gain Skin: Dryness, rash Eyes: Decreased visual acuity requiring corrective lenses Respiratory: COPD Cardiovascular: Ankle swelling, hypertension, pain with ambulation Genitourinary: Incontinence, nocturia Musculoskeletal: Joint stiffness, joint pain, joint swelling Neurological: Memory loss Endocrine: Diabetes mellitus, heat/cold intolerance Psychological: Depression, difficulty sleeping, loss of interest in enjoyable events Physical Exam Vital Signs / I&Os Blood pressure: 189/55 mmHg Heart rate: 68/minute Respiratory rate: 18/minute Temperature: 98.2 Fahrenheit orally Pulse oximetry: 98% room air General Appearance Alert, Cooperative, No acute distress HEENT Atraumatic, PERRLA, EOMI, Moist mucous membranes Lungs Normal air movement, Scattered rhonchi Neck Supple, No JVD Cardiovascular Normal S1 and S2, grade 2/6 systolic murmur, 1-2+ pedal edema Abdomen Normal bowel sounds, Soft, No tenderness, No guarding Extremities No cyanosis, No clubbing, 1-2+ pedal edema Neurological Cranial nerves intact, No lateralizing signs Psych/Mental Status Mood normal, Confused LAB Results Laboratory Tests 03/15 03/15 03/15 03/15 0435 0355 [id number] 0001 Chemistry Lactic Acid (0.4 - 2.0 mmol/L) 1.1 Creatine Kinase (24 - 260 U/L) 34 Troponin (0.00 - 1.5 ng/mL) 0.12 B-Natriuretic Peptide (5 - 100 pg/ml) 168 Coagulation INR (0.8 - 1.2) 1.0 APTT (24 - 34 SECONDS) 34 Urines Urine Color YELLOW Urine Appearance CLEAR Urine pH (5.0 - 8.0) 6.0 Ur Specific Cedar (1.010 - 1.030) 1.025 Urine Protein (NEGATIVE) 2+ Urine Ketones (NEGATIVE) NEGATIVE Urine Blood (NEGATIVE) 1+ Urine Nitrite (NEGATIVE) NEGATIVE Urine Bilirubin (NEGATIVE) NEGATIVE Urine Urobilinogen (0.2 - 1.0 EU/dL) 0.2 Ur Leukocyte Esterase (NEGATIVE) POSITIVE Urine RBC (0 - 1 rbc/hpf) 3-5 Urine WBC (0 - 1 wbc/hpf) 25-50 Ur Epithelial Cells (0 - 5 EPI/hpf) 0-1 Urine Bacteria (NONE SEEN) MODERATE (2+ TO 3+) Urine Glucose (NEGATIVE) NEGATIVE Urine Comment CULTURE INDICATED 03/14 2300 Chemistry Plasma Sodium (136 - 145 mmol/L) 146 Plasma Potassium (3.5 - 5.1 mmol/L) 4.4 Plasma Chloride (98 - 107 mmol/L) 112 CO2 (Enzymatic) (21 - 32 mmol/L) 29 BUN (7 - 18 mg/dL) 25 Creatinine (0.6 - 1.3 mg/dL) 1.0 Est GFR ( Amer) (mL/min) >60 Est GFR (Non-Af Amer) (mL/min) >60 Glucose (70 - 110 mg/dL) 162 Plasma Calcium (8.5 - 10.1 mg/dL) 7.7 Total Bilirubin (0.0 - 1.0 mg/dL) 0.4 AST (15 - 37 U/L) 30 ALT (12 - 78 U/L) 46 Alkaline Phosphatase (46 - 116 U/L) 157 Creatine Kinase (24 - 260 U/L) 26 Troponin (0.00 - 1.5 ng/mL) 0.15 Total Protein (6.4 - 8.2 g/dL) 5.8 Albumin (3.3 - 5.0 g/dL) 2.3 Amylase (25 - 115 U/L) 52 Lipase (73 - 393 U/L) 83 Hematology WBC (4.5 - 11.5 K/uL) 4.9 RBC (4.50 - 5.90 M/uL) 4.36 Hgb (13.5 - 17.5 gm/dL) 12.5 Hct (41.0 - 53.0 %) 39.1 MCV (80 - 100 fL) 90 MCH (26 - 34 pg) 29 RDW (11.6 - 14.8 %) 16.6 Gran % 65.4 Lymph % (Auto) (25 - 40 %) 29.6 Ray % (Auto) (3 - 14 %) 5.0 Plt Count, EDTA (150 - 400 K/uL) 81 PUBS MCHC (31 - 37 g/dL) 32 Microbiology Date/Time Procedure - Status Source Growth 03/15 0440 Blood Culture - RECD BLOOD 03/15 0435 Blood Culture - RECD BLOOD 03/15 0345 Urine Culture - RECD URINE CATH Imaging Chest x-ray IMPRESSION: 1. Negative chest. Dictated by: BHARATI MENDEZ MD D: ZAIDA;03/15/[address] Scan-Head IMPRESSION: 1. 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 2. 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 3. No change. No evidence of acute process. 4. Findings discussed with Dr. Bunny Gupta (03/15/2017, 0020 hours) All CT scans at this facility use dose modulation, iterative reconstruction, and/or weight-based dosing when appropriate to reduce radiation dose to as low as reasonably achievable. Dictated by: BHARATI MENDEZ MD D: ZAIDA;03/15/17 0034 Assessment and Plan Problem List 1. UTI (urinary tract infection) Status Acute Onset Date 03/15/17 Plan -Patient presents with findings of UTI -Rocephin 1 g IV daily -Urine C&S pending -Monitor 2. Prerenal azotemia Status Acute Onset Date 03/15/17 Plan -Patient presents with findings of prerenal azotemia -IV fluid therapy -Monitor 3. Diabetes mellitus type 2, controlled Plan -Patient with history of diabetes mellitus type 2 -Insulin sliding scale -Blood sugar mildly elevated -Check hemoglobin A1c 4. BPH (benign prostatic hyperplasia) Plan -Patient with history of BPH with urinary incontinence -Continue outpatient medical regimen -Monitor for urinary retention 5. Dementia Status Chronic Onset Date Unknown Plan -Patient with long-standing history of dementia -Patient with progressive symptoms -May require placement in adult home/assisted living due to increasing requirements of life in the patient's ADLs -Consult discharge planning/physical therapy 6. Cerebrovascular disease Status Chronic Onset Date Unknown Plan -Patient with history of cerebrovascular disease status post CVA -No acute findings on CT scan -No clear new neurological focal deficits -Monitor -Aspirin, Lipitor. 7. Elevated troponin Status Acute Onset Date Unknown Plan -Patient with indeterminate troponin with decreasing level -No history of chest pain -No acute EKG changes -Continue monitoring with serial troponin -Aspirin, beta jaycee Current status: Fair, unstable Anticipated discharge date: Anticipated discharge in 1-2 days Anticipated discharge placement: Home versus senior living facility versus adult home Patient care time: Time in chart review, patient interview, physical exam, CPOE, and care documentation: 70 mins Visit to patient today: 2 Complexity of care: Moderate-High DVT prophylaxis: Lovenox 40 mg subcutaneous daily GI prophylaxis: Protonix 40 mg by mouth daily E&M Codes Admission: Obsv-Comp/High/[id number]
[2017-03-15 06:48] VITALS: BP 167/56
--- NOTE | 2017-03-15 09:46 | ED DISCHARGE INSTRUCTIONS ---
Patient: SUZANNE WILEY General Instructions [facility] VisitID: [id number] [address] [place] [address] 76y, M Registration Date/Time: 03/14/2017 Dizziness. Changed mental status. Urinary tract infection. Abnormal tests: (indeterminate troponin). INSTRUCTIONS Prescription Medications: Penicillin V 500mg: take 1 tab orally every 6 hours for 10 days. Dispense forty (40). No refill (Electronically signed by Bunny Gupta MD 03/15/2017 9:46)
--- NOTE | 2017-03-15 09:46 | ED DISCHARGE INSTRUCTIONS ---
Patient: SUZANNE WILEY General Instructions [facility] VisitID: [id number] [address] [place] [address] 76y, M Registration Date/Time: 03/14/2017 Dizziness. Changed mental status. Urinary tract infection. Abnormal tests: (indeterminate troponin). INSTRUCTIONS Prescription Medications: Penicillin V 500mg: take 1 tab orally every 6 hours for 10 days. Dispense forty (40). No refill (Electronically signed by Bunny Gupta MD 03/15/2017 9:46)
--- NOTE | 2017-03-15 09:47 | ED MED RECONCILIATION SUMMARY ---
Patient: SUZANNE WILEY Medication Reconciliation Report [facility] VisitID: [id number] [address] [place] [address] 76y, M Registration Date/Time: 03/14/2017 Weight: 73.4 kg Height/Length: 65 in. BMI: 27.0 ALLERGIES: NKDA The patient's Home Medications are listed below: THE FOLLOWING MEDICATIONS NEED TO BE RECONCILED: Allopurinol 300 mg tab PO QD Avapro 150 mg PO QD Calmoseptine Docusate 100 mg QD Enteric Aspirin 81 mg QD Finasteride 5 mg QD Flomax 0.4 mg PO QHS Gabapentin 300 mg tab PO QHS Ketoconazole External Lexapro 10 mg 1/2 tab QD Lipitor 40 mg tab 1.5 tab PO QHS Maalox Metoprolol 25 mg PO QD Multivitamins Oral Nystatin Nystatin External Omeprazole 20 mg PO QD Oxybutynin Tylenol Extra Strength Oral Vitamin D3 2000 IU 2 PO QD Zinc Oxide Zinc Oxide External The source(s) of the original Home Medication information: Not obtained. The following Medications were given to the patient in the Emergency Department: Aspirin [PO] PO 325 mg, administered: 03/15/2017 12:54:00 AM Clonidine [PO] PO 0.2 mg, administered: 03/15/2017 1:01:00 AM Ativan [IVP] IVP 0.5 mg, administered: 03/15/2017 3:03:00 AM Levaquin [IVPB] IVPB bolus 0, then 750 mg 100 mL/hr, administered: 03/15/2017 4:48:00 AM The following Medications were prescribed to the patient: Penicillin V 500mg: take 1 tab orally every 6 hours for 10 days. Dispense forty (40). No refill -- Bunny Gupta MD
--- NOTE | 2017-03-15 09:47 | ED MED RECONCILIATION SUMMARY ---
Patient: SUZANNE WILEY Medication Reconciliation Report [facility] VisitID: [id number] [address] [place] [address] 76y, M Registration Date/Time: 03/14/2017 Weight: 73.4 kg Height/Length: 65 in. BMI: 27.0 ALLERGIES: NKDA The patient's Home Medications are listed below: THE FOLLOWING MEDICATIONS NEED TO BE RECONCILED: Allopurinol 300 mg tab PO QD Avapro 150 mg PO QD Calmoseptine Docusate 100 mg QD Enteric Aspirin 81 mg QD Finasteride 5 mg QD Flomax 0.4 mg PO QHS Gabapentin 300 mg tab PO QHS Ketoconazole External Lexapro 10 mg 1/2 tab QD Lipitor 40 mg tab 1.5 tab PO QHS Maalox Metoprolol 25 mg PO QD Multivitamins Oral Nystatin Nystatin External Omeprazole 20 mg PO QD Oxybutynin Tylenol Extra Strength Oral Vitamin D3 2000 IU 2 PO QD Zinc Oxide Zinc Oxide External The source(s) of the original Home Medication information: Not obtained. The following Medications were given to the patient in the Emergency Department: Aspirin [PO] PO 325 mg, administered: 03/15/2017 12:54:00 AM Clonidine [PO] PO 0.2 mg, administered: 03/15/2017 1:01:00 AM Ativan [IVP] IVP 0.5 mg, administered: 03/15/2017 3:03:00 AM Levaquin [IVPB] IVPB bolus 0, then 750 mg 100 mL/hr, administered: 03/15/2017 4:48:00 AM The following Medications were prescribed to the patient: Penicillin V 500mg: take 1 tab orally every 6 hours for 10 days. Dispense forty (40). No refill -- Bunny Gupta MD
--- NOTE | 2017-03-15 09:47 | ED MAR SUMMARY ---
..... Medication Administration Record [facility] [address] [place] [address] Patient: SUZANNE WILEY Visit ID: [id number] 76y, M Weight: 73.4 kg Height/Length: 65 in BMI: 27 ALLERGIES: NKDA Given 00:54 03/15/2017 Nikolas Gao R.N. Medication Administered: ASPIRIN [PO], Dose: 325 mg Tablets PO. Medication Ordered: Aspirin PO 325 mg (NOW). Given 01:01 03/15/2017 Nikolas Gao R.N. Medication Administered: CLONIDINE [PO], Dose: 0.2 mg Tablets PO. Medication Ordered: Clonidine PO 0.2 mg (NOW). Given 03:03 03/15/2017 Sotero Atkinson R.N. Medication Administered: ATIVAN [IVP] (LORAZEPAM), Dose: 0.5 mg IVP over 2 minute(s), Site: #1 left AC. Medication Ordered: Ativan IV 0.5 mg (HIGH ALERT MEDICATION, NOW). Start 04:48 03/15/2017 Sotero Atkinson RFranciscoNFrancisco, Stop 06:16 03/15/2017 Herminia Narayanan R.N. Medication Administered: LEVAQUIN [IVPB] (LEVOFLOXACIN), Dose: 750 mg IVPB over 1.5 hour(s), Rate: 100 mL/hr, Dispensed: 150 mL bag, Site: #1 left AC. Medication Ordered: Levaquin IV 750 mg/150 mL (NOW).
--- NOTE | 2017-03-15 09:47 | ED MAR SUMMARY ---
..... Medication Administration Record [facility] [address] [place] [address] Patient: SUZANNE WILEY Visit ID: [id number] 76y, M Weight: 73.4 kg Height/Length: 65 in BMI: 27 ALLERGIES: NKDA Given 00:54 03/15/2017 Nikolas Gao R.N. Medication Administered: ASPIRIN [PO], Dose: 325 mg Tablets PO. Medication Ordered: Aspirin PO 325 mg (NOW). Given 01:01 03/15/2017 Nikolas Gao R.N. Medication Administered: CLONIDINE [PO], Dose: 0.2 mg Tablets PO. Medication Ordered: Clonidine PO 0.2 mg (NOW). Given 03:03 03/15/2017 Sotero Atkinson R.N. Medication Administered: ATIVAN [IVP] (LORAZEPAM), Dose: 0.5 mg IVP over 2 minute(s), Site: #1 left AC. Medication Ordered: Ativan IV 0.5 mg (HIGH ALERT MEDICATION, NOW). Start 04:48 03/15/2017 Sotero Atkinson RFranciscoNFrancisco, Stop 06:16 03/15/2017 Herminia Narayanan R.N. Medication Administered: LEVAQUIN [IVPB] (LEVOFLOXACIN), Dose: 750 mg IVPB over 1.5 hour(s), Rate: 100 mL/hr, Dispensed: 150 mL bag, Site: #1 left AC. Medication Ordered: Levaquin IV 750 mg/150 mL (NOW).
[2017-03-15 10:10] VITALS: BP 149/55
[2017-03-15] MEDS ORDERED: LIPITOR40 MG PO ×2 (11:15→11:17)
[2017-03-15] MEDS ORDERED: FLOMAX0.4 MG PO (11:19)
[2017-03-15] MEDS ORDERED: COLACE100 MG (11:20)
[2017-03-15] MEDS ORDERED: ASPIRIN ADULT L81 MG PO (11:23)
[2017-03-15] MEDS ORDERED: METOPROLOL TART25 MG PO (11:25)
[2017-03-15] MEDS ORDERED: FINASTERIDE5 MG PO (11:26)
[2017-03-15] MEDS ORDERED: LEXAPRO5 MG PO (11:27)
[2017-03-15] MEDS ORDERED: KETOCONAZOLE2 % (11:28)
--- NOTE | 2017-03-15 13:47 | Progress Note ---
Subjective General States he is feeling better. Denies pain. Denies any problems. Has worked with PT and was a little grumpy but able to work with him. Very weak and using 1-2 person assist for ambulation with shuffling gate. Has some reddness at penis chronic. Physical Exam Vital Signs / I&Os Vital Signs Date Time Temp Pulse Resp B/P Pulse O2 O2 Flow FiO2 Ox Delivery Rate 03/15 1010 97.3 50 18 149/55 96 Room Air 0.0 03/15 0957 98 03/15 0648 97.3 44 16 167/56 98 Room Air 0.0 General Appearance Alert Lungs Clear to auscultation, Normal air movement Cardiovascular Regular rate and rhythm, No murmurs, gallops, rubs Abdomen Soft, No tenderness Extremities No edema, fingers missing distal digits and pointed nails LAB Results Laboratory Tests 03/15 03/15 03/15 03/15 1215 0435 0355 0345 Chemistry Lactic Acid (0.4 - 2.0 mmol/L) 1.1 Creatine Kinase (24 - 260 U/L) 34 Troponin (0.00 - 1.5 ng/mL) 0.14 0.12 Urines Urine Color YELLOW Urine Appearance CLEAR Urine pH (5.0 - 8.0) 6.0 Ur Specific [place] (1.010 - 1.030) 1.025 Urine Protein (NEGATIVE) 2+ Urine Ketones (NEGATIVE) NEGATIVE Urine Blood (NEGATIVE) 1+ Urine Nitrite (NEGATIVE) NEGATIVE Urine Bilirubin (NEGATIVE) NEGATIVE Urine Urobilinogen (0.2 - 1.0 EU/dL) 0.2 Ur Leukocyte Esterase (NEGATIVE) POSITIVE Urine RBC (0 - 1 rbc/hpf) 3-5 Urine WBC (0 - 1 wbc/hpf) 25-50 Ur Epithelial Cells (0 - 5 EPI/hpf) 0-1 Urine Bacteria (NONE SEEN) MODERATE (2+ TO 3+) Urine Glucose (NEGATIVE) NEGATIVE Urine Comment CULTURE INDICATED 03/15 03/14 0001 2300 Chemistry Plasma Sodium (136 - 145 mmol/L) 146 Plasma Potassium (3.5 - 5.1 mmol/L) 4.4 Plasma Chloride (98 - 107 mmol/L) 112 CO2 (Enzymatic) (21 - 32 mmol/L) 29 BUN (7 - 18 mg/dL) 25 Creatinine (0.6 - 1.3 mg/dL) 1.0 Est GFR ( Amer) (mL/min) >60 Est GFR (Non-Af Amer) (mL/min) >60 Glucose (70 - 110 mg/dL) 162 Plasma Calcium (8.5 - 10.1 mg/dL) 7.7 Total Bilirubin (0.0 - 1.0 mg/dL) 0.4 AST (15 - 37 U/L) 30 ALT (12 - 78 U/L) 46 Alkaline Phosphatase (46 - 116 U/L) 157 Creatine Kinase (24 - 260 U/L) 26 Troponin (0.00 - 1.5 ng/mL) 0.15 B-Natriuretic Peptide (5 - 100 pg/ml) 168 Total Protein (6.4 - 8.2 g/dL) 5.8 Albumin (3.3 - 5.0 g/dL) 2.3 Amylase (25 - 115 U/L) 52 Lipase (73 - 393 U/L) 83 Coagulation INR (0.8 - 1.2) 1.0 APTT (24 - 34 SECONDS) 34 Hematology WBC (4.5 - 11.5 K/uL) 4.9 RBC (4.50 - 5.90 M/uL) 4.36 Hgb (13.5 - 17.5 gm/dL) 12.5 Hct (41.0 - 53.0 %) 39.1 MCV (80 - 100 fL) 90 MCH (26 - 34 pg) 29 RDW (11.6 - 14.8 %) 16.6 Gran % 65.4 Lymph % (Auto) (25 - 40 %) 29.6 [place] % (Auto) (3 - 14 %) 5.0 Plt Count, EDTA (150 - 400 K/uL) 81 PUBS MCHC (31 - 37 g/dL) 32 Microbiology Date/Time Procedure - Status Source Growth 03/15 1030 MRSA Screen - RECD NASAL 03/15 0440 Blood Culture - RECD BLOOD 03/15 0435 Blood Culture - RECD BLOOD 03/15 0345 Urine Culture - RECD URINE CATH Assessment and Plan Problem List 1. Cerebrovascular disease Status Chronic Onset Date Unknown Plan hx cva 2. Elevated troponin Status Acute Onset Date Unknown Plan stable 3. Dementia Status Chronic Onset Date Unknown Plan Chronic disease with memory loss. Sometimes with behavior issues per staff in his being grumpy 4. UTI (urinary tract infection) Status Acute Onset Date 03/15/17 Plan On abx await cx. Working with D/C planning as rec per PT to SNF
[2017-03-15 14:42] VITALS: BP 131/89
[2017-03-15 18:28] VITALS: BP 130/85; BP 168/61
[2017-03-15 22:25] VITALS: BP 190/71
[2017-03-15 23:25] VITALS: BP 170/68
[2017-03-16 02:44] VITALS: BP 176/76
--- NOTE | 2017-03-16 06:33 | Progress Note ---
Subjective General Patient states that he is doing well denies any cp,sob or other problems. He states he is just tired. Seems agreeable for transfer to SNF for rehab today. Physical Exam Vital Signs / I&Os Vital Signs Date Time Temp Pulse Resp B/P Pulse O2 O2 Flow FiO2 Ox Delivery Rate 03/16 0244 98.2 54 20 176/76 95 Room Air 03/15 2325 170/68 03/15 2225 98.2 60 18 190/71 95 Room Air 03/15 1953 0.0 03/15 1828 97.7 50 18 168/61 97 Room Air 03/15 1442 97.7 60 20 131/89 90 Room Air 03/15 1010 97.3 50 18 149/55 96 Room Air 0.0 03/15 0957 98 03/15 0648 97.3 44 16 167/56 98 Room Air 0.0 I&O 03/16 0000 03/15 1600 03/15 0800 Intake Total 653 1324 Output Total 2103 90 71 Balance -1450 1234 -71 General Appearance Alert, laying in bed HEENT Normal exam Lungs Clear to auscultation, Normal air movement Cardiovascular Regular rate and rhythm Abdomen Soft, No tenderness Extremities No edema LAB Results Laboratory Tests 03/16 03/16 03/16 03/15 03/15 0510 0510 0400 2139 1954 Chemistry Plasma Sodium (136 - 145 mmol/L) 139 Plasma Potassium (3.5 - 5.1 mmol/L) 4.2 Plasma Chloride (98 - 107 mmol/L) 109 CO2 (Enzymatic) (21 - 32 mmol/L) 27 BUN (7 - 18 mg/dL) 17 Creatinine (0.6 - 1.3 mg/dL) 0.9 Est GFR ( Amer) (mL/min) >60 Est GFR (Non-Af Amer) (mL/min) >60 Glucose (70 - 110 mg/dL) 169 Plasma Calcium (8.5 - 10.1 mg/dL) 7.4 Troponin (0.00 - 1.5 ng/mL) 0.15 Cancelled Cancelled 0.16 Hematology WBC (4.5 - 11.5 K/uL) 4.8 RBC (4.50 - 5.90 M/uL) 3.97 Hgb (13.5 - 17.5 gm/dL) 11.4 Hct (41.0 - 53.0 %) 35.9 MCV (80 - 100 fL) 90 MCH (26 - 34 pg) 29 RDW (11.6 - 14.8 %) 16.2 Neut % (Auto) (50 - 75 %) 68.6 Lymph % (Auto) (25 - 40 %) 25.0 [place] % (Auto) (3 - 14 %) 4.8 Eos % (Auto) (0 - 4 %) 1.3 Baso % (Auto) (0 - 2 %) 0.3 Plt Count, EDTA (150 - 400 K/uL) 64 PUBS MCHC (31 - 37 g/dL) 32 03/15 1215 Chemistry Troponin (0.00 - 1.5 ng/mL) 0.14 Microbiology Date/Time Procedure - Status Source Growth 03/15 1030 MRSA Screen - RECD NASAL Assessment and Plan Problem List 1. Cerebrovascular disease Status Chronic Onset Date Unknown Plan Hx of cva and multi infarct dementia stable. I have reviewed office notes and is listed as DNR /DNI on polst will try to confirm code status with family. 2. Elevated troponin Status Acute Onset Date Unknown Plan minimally elevated trop I and stable; no cp,sob and not appearing to be active dz 3. Dementia Status Chronic Onset Date Unknown Plan Multi infarct dementia and will see how he does. 4. Diabetes mellitus type 2, controlled Plan Stable at this time. No acute issues. 5. Weakness Plan sNF placement for rehab will work on strengthening. 6. Hypertension Plan Increase on his meds with trial of coreg with higher dose losartan. Will try to confirm code status.
[2017-03-16] MEDS ORDERED: LOSARTAN POTASS25 MG PO (06:43)
[2017-03-16] MEDS ORDERED: CEPHALEXIN500 MG PO (06:44)
--- NOTE | 2017-03-16 06:48 | Provider's Discharge Care Plan ---
Problem, Goal, Plan Problem List 1. Hypertension Instructions: BP increased; will try increase on the losartan, hold beta jaycee, low HR 2. UTI (urinary tract infection) Instructions: take abx until done 3. Cerebrovascular disease Instructions: on statin, hx cva 4. Elevated troponin Instructions: elevated trop I try coreg 5. Dementia Instructions: has dementia that is likely multi infarct continue statin
[2017-03-16] MEDS ORDERED: COREG3.125 MG PO (06:49)
[2017-03-16 07:46] VITALS: BP 125/70
[2017-03-16 07:55] VITALS: BP 169/61
== END 2017-03-16 11:30 ==
LOC: ED SRH 22:56 → TRANS SRH 03-15 04:45 → ACUTE2 SRH 03-15 04:45
PROVIDERS: ADMIT Internal Medicine
DX: N39.0 Urinary tract infection, site not specified (principal); R39.2 Extrarenal uremia; R42 Dizziness and giddiness; R53.1 Weakness; F01.50 Vascular dementia, unspecified severity, without behavioral disturbance, psychotic disturbance, mood disturbance, and anxiety; R74.8 Abnormal levels of other serum enzymes; E11.22 Type 2 diabetes mellitus with diabetic chronic kidney disease; I12.9 Hypertensive chronic kidney disease with stage 1 through stage 4 chronic kidney disease, or unspecified chronic kidney disease; N18.9 Chronic kidney disease, unspecified; E11.51 Type 2 diabetes mellitus with diabetic peripheral angiopathy without gangrene
CPT/HCPCS: 29230; 29250; 29251; 85241; 85244; 90004; 90047; 90065; 90070; 90074; 90098; 90100; 90469; 90616; 91320; 92031; 92132; 92235; 92530; 92610; 94001; 94060; 95059